=== PATIENT | male | born 1945 | race Caucasian/White ===

== ENCOUNTER → 2017-02-25 | Day surgery (SDC) | payer MEDICARE ==
[~2017-02-25] MED LIST: ASPI81TA82 PO; BENI40TA30 PO; CHLO4TAB PO; DEXAMETHASONE SOD PHOS 4 MG/ML VIAL IV ONE; EXCETAB2; FIBECAP2 PO; FUROSEMIDE 20 MG/2 ML VIAL ONE; GENTAMICIN SULFATE 80 MG/2 ML VIAL ONE; IRON28TA PO; LACTATED RINGER'S 1000 ML INJ 1,000 ML ONE; LIDOCAINE HCL 1% PF 5 ML AMPULE OTHER ONE; MECL-62 PO; MULT-112 PO; MULTCAP14 PO; PROPOFOL 200 MG/20 ML AMP IV ONE; SODIUM CHLORIDE 0.9% SOLN 100 ML BAG IV ONE; SUMA20SP
--- NOTE | 2017-02-25 17:19 | TN ---
cc: FRANCA YOUNGBLOOD M.D. DATE OF SURGERY: 02/25/2017 PREOPERATIVE DIAGNOSIS Right urethrovesical junction calculus and (ICD-10 code N20.1) POSTOPERATIVE DIAGNOSIS Right distal ureteral calculus (ICD-10 code N20.1) PROCEDURE: Cystourethroscopy with right ureteroscopic holmium laser lithotripsy and stone basket manipulation. (CPT code 91859) INDICATION Mr. Madrigal is a 71 year-old gentleman with acute right-sided flank pain under imaging was found to have hydroureteronephrosis to the level of a 6 mm stone and the urethrovesical junction by report. He presents now for definitive treatment after discussing the possibility of medical explosive therapy. FINDINGS: Normal urethra with the exception of a mild bulbar membranous urethral stricture. The prostatic urethra shows evidence of previous TUR defect with some mucosal changes consistent with previous treatment. There is some bilateral hyperplasia, elevated and open bladder neck. The ureteral orifice is normal size, shape and position, effluxing clear urine bilaterally. No rosemary tumors, abnormal mucosa, or calcifications identified within the bladder. No trabeculations, diverticuli or cellules. Ureteroscopy showed no stone within the urethrovesical junction but just proximal to this area, there was some mild narrowing and scarring presumably from previous procedures with approximately 6 millimeter stone on the other side of this area of narrowing. The remainder of the ureter was dilated and no evidence of additional stones or abnormalities. DESCRIPTION OF PROCEDURE: The procedure, as well as the risks and benefits were explained to the patient. Informed consent was obtained. The patient was taken to the major operative theater where he was placed in supine position. The patient was identified as well as the operative site. Maury time-out was performed in standard fashion. At this time general anesthetic and prophylactic intravenous antibiotics consisting of gentamicin 80 mg was administered. After adequate anesthetic he was placed in the low dorsolithotomy position, prepped and draped in the usual sterile fashion. At this time a 22.5 Israeli cystoscope with a 30 degree lens was inserted into the urethra and bladder with the above findings. Attention was then directed to the right ureteral orifice where 0.035 inch hybrid guidewire was placed without difficulty under fluoroscopic guidance up the ureter and into the renal pelvis. The cystoscope was removed leaving the guidewire in place as a safety wire attached to the drapes. At this time a semi rigid mini ureteroscope was then placed under direct vision up into the ureteral meatus without difficulty. However, as discussed previously just a few centimeters inside, there was some scar tissue and narrowing presumably from previous procedures. On the other side of this was the stone in question. At this time, a 273 micron holmium laser fiber was used to fragment the stone into several pieces and then using a Zero-tip Nitinol basket, the fragments were basketed and removed. The scope was then placed back in confirming that there was no significant trauma or necessity for leaving a stent which there was not, and decision was made not to leave any stent in since it appeared to be adequate drainage, despite some narrowing in that area of the scarring. At this time the ureteroscope was removed and the cystoscope was placed back into the bladder. The fragments were then flushed out and sent for crystallographic analysis. The safety wire was removed and attention was directed to the ureteral orifice. There was clear efflux of urine. The bladder was then decompressed. The scope removed. The patient tolerated the procedure well and emerged from anesthetic without difficulty and transferred to the Recovery Room in stable condition, to be discharged home when criteria is met. There are no obvious complications. MD AMADO Jewell/NINFA /4:11 PM /4:57 PM
== END | disposition home or self-care (01) ==
LOC: ESDC 12:52
PROVIDERS: ATTEND Urology
DX: N20.1 Calculus of ureter (principal)
CPT/HCPCS: 00918; 52353; 76000; C1769; J1100; J1580; J3010; J7120; J1940